=== PATIENT | male | born 1930 | race Caucasian/White ===

== ENCOUNTER 2017-06-07 09:41 | Outpatient (CLI) ==
[2015-08-07 14:37] VITALS: BMI 30.3
--- NOTE | 2017-06-07 12:42 | CT ---
EXAM: CT of the chest without contrast History: Follow-up lung nodules. Comparison: Chest CT 05/25/2016 Technique: Multiplanar CT images through the thorax were obtained without the administration of IV c ontrast Findings: Heart size is normal. Coronary calcifications and valvular calcifications of the heart. N o pericardial effusion. No pathologically enlarged thoracic lymph nodes. Calcified granulomas again seen within the thorax. No consolidation. No pleural fluid and no pneumothorax. Scattered areas o f subsegmental atelectasis again noted. Stable 3 mm pleural based right middle lobe lung nodule. No developing lung nodules and no suspicious lung nodules or lung masses. Moderate to large hiatal hernia again identified. Status post cholecystectomy. No acute osseous abn ormalities. Diffuse idiopathic skeletal hyperostosis of the thoracic spine. Impression: 1. No acute intrathoracic process. 2. Stable most likely benign 3 mm right middle lobe lung nodule. No developing lung nodules and no suspicious lung nodules. 3. Coronary artery disease and valvular calcifications of the heart. 4. [id number] hiatal hernia
== END 2017-06-07 09:42 | disposition home or self-care (01) ==
LOC: RAD 09:41
PROVIDERS: ATTEND Internal Medicine Pulmonary Disease
DX: R91.1 Solitary pulmonary nodule (principal)

== ENCOUNTER 2018-07-03 23:27 | Emergency (ER) | payer OTHER ==
[2018-07-03 23:38] VITALS: BP 136/71; TEMP 101; BMI 30.6
--- NOTE | 2018-07-04 00:20 | CT ---
EXAM: CT scan abdomen pelvis without contrast HISTORY: Right lower quadrant pain COMPARISON: None. FINDINGS: Contiguous axial images obtained through the abdomen pelvis without contrast utilizing 3-m m collimation. Sagittal and coronal reconstructions were imaged and reviewed.. There is moderate si zed hiatal hernia. There is bibasilar atelectasis and/or pneumonia. There has been prior cholecyste ctomy.. They are benign granulomatous changes in the spleen. The liver pancreas and adrenal glands have normal unenhanced CT appearance. Right kidney is morphologically normal. There is a small exop hytic cyst lower pole left kidney Atherosclerotic changes are seen involving the aorta without aneur ysm formation. There is a normal appendix. The bladder is small volumed and thick-walled with surro unding inflammation. Prostate gland is normal in size. There is no free fluid.. Degenerative change s noted throughout the lumbar spine bilateral hips. IMPRESSION: Moderate sized hiatal hernia. Bibasilar infiltrates left greater than right. ASVD without aneurysm. Normal appendix. Small volumed thick-walled bladder was not inflammations suggesting cystitis
[2018-07-04] MEDS ORDERED: LEVAQUIN 500 MG in PREMIX 100 ML D5W 1 BAG IV STA (00:48)
[2018-07-04] MEDS ORDERED: LEVAQUIN 100 ML IV ONE (00:54)
--- NOTE | 2018-07-04 01:04 | ED.PDOC ---
General ED Provider: Dr. JAMAICA MARTINEZ-ER Chief Complaint: Abdominal Pain Stated Complaint: im hurting and i am running a fever Time Seen by Physician: 23:30 Mode of Arrival: Walk-In Information Source: Patient, Family Exam Limitations: No limitations Primary Care Provider: NIDA FRANKLIN Nursing and Triage Documentation Reviewed and Agree: Yes Does patient meet sepsis criteria?: No System Inflammatory Response Syndrome: Not Applicable Sepsis Protocol: For patient's 13 years and over: Temp is 96.8 and below OR 101 and greater Pulse >90 BPM Resp >20/minute Acutely Altered Mental Status Are patient's symptoms suggestive of a new infection, such as: -Pneumonia -Skin, Soft Tissue -Endocarditis -UTI -Bone, Joint Infection -Implantable Device -Acute Abdominal Infection -Wound Infection -Meningitis -Blood Stream Catheter Infection -Unknown Complaint Exam - Complaint/Exam Patient Complains of: Reports: Dysuria Symptoms Are: Still present Timing: Constant Initial Severity: Mild Current Severity: Moderate Location of Pain: Reports: Suprapubic Character: Reports: Constant pressure, Dull Aggravating: Reports: Voiding, Straining, Palpation Alleviating: Reports: None Associated Signs and Symptoms: Reports: Fever, Increased urine frequency Abdominal Findings: Present: None Differential Diagnoses: Prostatitis, Pyelonephritis, UTI, Ureteral Calculi Review of Systems - Review Of Systems Constitutional: Reports: No symptoms Eyes: Reports: No symptoms Ears, Nose, Mouth, Throat: Reports: No symptoms Respiratory: Reports: No symptoms Cardiac: Reports: No symptoms GI: Reports: Abdominal pain : Reports: Dysuria, Frequency Musculoskeletal: Reports: No symptoms Skin: Reports: No symptoms Neurological: Reports: No symptoms Endocrine: Reports: No symptoms Hematologic/Lymphatic: Reports: No symptoms All Other Systems: Reviewed and Negative Past Medical History - Past Medical History Previously Healthy: No Endocrine: Reports: None Cardiovascular: Reports: DE, Hypertension, CHF Respiratory: Reports: None Hematological: Reports: Anemia Gastrointestinal: Reports: GERD Genitourinary: Reports: None Neuro/Psych: Reports: Anxiety Musculoskeletal: Reports: Arthritis Cancer: Reports: None - Surgical History General Surgical History: Reports: Cholecystectomy - Family History Family History: Reports: Unknown - Social History Smoking Status: Former smoker Hx Substance Use: No Alcohol Screening: None - Immunizations Tetanus Shot up to Date: (UNKNOWN) Physical Exam - Physical Exam Appearance: Well-appearing Eyes: YOANA, EOMI, Conjunctiva clear ENT: Ears normal, Nose normal, Oropharynx normal Neck: Supple Respiratory: Airway patent Cardiovascular: RRR GI/: Soft, Nontender, No masses, Bowel sounds normal, No Organomegaly Musculoskeletal: Normal strength, ROM intact, No edema, No calf tenderness Skin: Warm, Dry, Normal color Neurological: Sensation intact, Motor intact, Reflexes intact, Cranial nerves intact, Alert, Oriented Psychiatric: Affect appropriate, Mood appropriate Interpretation - Radiology Interpretation Radiology Interpretation By: Radiologist Radiology Results: Positive Exam Interpreted: CT Scan Critical Care Note - Critical Care Note Total Time (mins): 0 Course - Course Hematology/Chemistry: 07/03/18 23:59 07/03/18 23:59 Orders, Labs, Meds: Lab Review 07/03/18 07/03/18 07/04/18 23:59 23:59 00:00 WBC 13.18 H RBC 4.60 L Hgb 14.9 Hct 42.1 MCV 91.5 MCH 32.4 H MCHC 35.4 RDW Coeff of [place] 13.1 Plt Count 164 Immature Gran % (Auto) 0.5 Neut % (Auto) 70.1 Lymph % (Auto) 15.6 [place] % (Auto) 10.9 H Eos % (Auto) 2.6 Baso % (Auto) 0.3 Immature Gran # (Auto) 0.1 Neut # (Auto) 9.2 H Lymph # (Auto) 2.1 [place] # (Auto) 1.4 Eos # (Auto) 0.3 Baso # (Auto) 0.0 ESR Pending Sodium 137.1 Potassium 3.67 Chloride 102.0 Carbon Dioxide 31.3 H Anion Gap 7.47 BUN 25.4 H Creatinine 1.04 Estimated GFR (MDRD) 68.00 BUN/Creatinine Ratio 24.42 Glucose 113.2 H Calcium 8.86 Total Bilirubin 0.70 AST 27.3 ALT 17.6 Alkaline Phosphatase 82.8 Total Protein 7.34 Albumin 4.02 Globulin 3.32 Albumin/Globulin Ratio 1.21 Amylase 61.8 Lipase 42.5 Urine Color Yellow Urine Clarity Slightly Urine pH 7.5 Ur Specific [place] 1.015 Urine Protein 1+ Urine Glucose (UA) Negative Urine Ketones Negative Urine Blood Negative Urine Nitrite Negative Urine Bilirubin Negative Urine Urobilinogen 2.0 Ur Leukocyte Esterase 1+ Urine Microscopic WBC 10-20 Ur Squamous Epith Cells 2-5 Urine Bacteria 2+ Urine Mucus 1+ Orders Category Date Time Status IV [ED IV/MEDIPORT/POWERPORT] .ONCE EMERGENCY 07/04/18 00:48 Active AMYLASE Stat LAB 07/03/18 23:59 Completed CBC W/ AUTO DIFF Stat LAB 07/03/18 23:59 Results COMPREHENSIVE METABOLIC PANEL Stat LAB 07/03/18 23:59 Completed ESR Stat LAB 07/03/18 23:59 Results LIPASE Stat LAB 07/03/18 23:59 Completed URINALYSIS C & S IF INDICATED Stat LAB 07/04/18 00:00 Completed URINE CULTURE Stat LAB 07/04/18 00:00 Received 0.9 % Sodium Chloride [Saline Flush] MEDS 07/04/18 00:48 Ordered 1 syr IVF PRN PRN Levofloxacin/D5w [Levaquin] 100 ml MEDS 07/04/18 00:54 Discontinued IV .STK-MED Levofloxacin/D5w [Levaquin] 500 mg MEDS 07/04/18 00:48 Active Premix 100 ml D5w [address] ABDOMEN/PELVIS WO CONTRAST Stat RADS 07/03/18 23:41 Completed Medications Generic Name Dose Route Start Last Admin Trade Name Freq PRN Reason Stop Dose Admin Levofloxacin/Dextrose 500 mg/ 100 mls @ 100 mls/hr 07/04/18 00:48 Dextrose IV 07/04/18 01:47 ONCE STA Sodium Chloride 1 syr 07/04/18 00:48 Saline Flush IVF PRN PRN To flush IV Vital Signs: Temp Pulse Resp BP Pulse Ox 07/03/18 23:28 101 F H 72 20 136/71 91 L Departure - Departure Time of Disposition: 01:04 Disposition: HOME SELF-CARE Discharge Problem: Cystitis Instructions: Urinary Tract Infection in Men (ED) Condition: Good Pt referred to PMD for follow-up: Yes IPMP verified?: No Additional Instructions: bactrim ds bid x 10 days--f/u with dr franklin on sunday---return if symptoms worsen Allergies/Adverse Reactions: Allergies fish oil Adverse Reaction (Verified 07/03/18 23:39) Penicillins Adverse Reaction (Verified 07/03/18 23:39) pregabalin [From Lyrica] Adverse Reaction (Verified 07/03/18 23:39) testosterone [From AndroGel] Adverse Reaction (Verified 07/03/18 23:39) 07/03/18 PT STATES IS NOT SURE IF ALLERGIC TO THIS, LEFT ON LIST venom-honey bee [bee venom (honey bee)] Adverse Reaction (Verified 07/03/18 23: 39) Home Medications: Ambulatory Orders Hydrochlorothiazide 12.5 mg PO DAILY 12/25/14 Metoprolol Tartrate [Lopressor] 50 mg PO DAILY 12/25/14 Multivitamin [Multi-Vitamin Daily] 1 each PO BID 12/25/14 Omeprazole [Prilosec] 20 mg PO DAILY 12/25/14 Venlafaxine HCl [Effexor] 75 mg PO DAILY 12/25/14 Tamsulosin HCl [Flomax] 0.4 mg PO DAILY 07/03/18 Disposition Discussed With: Patient, Family
== END 2018-07-04 02:11 | disposition home or self-care (01) ==
LOC: ED 23:27
DX: N30.90 Cystitis, unspecified without hematuria (principal); R10.9 Unspecified abdominal pain; I10 Essential (primary) hypertension; I25.2 Old myocardial infarction; Z79.899 Other long term (current) drug therapy
CPT/HCPCS: 36415; 80053; 81001; 82150; 83690; 85025; 85651; 87086; 87186; 96365; 99283

== ENCOUNTER 2018-11-19 14:24 | Outpatient (CLI) | payer OTHER ==
--- NOTE | 2018-11-19 15:35 | DI ---
Exam: Three views of the left ankle. Comparison: Left foot x-rays performed on 08/10/2011. Reason for exam: Left ankle pain. FINDINGS: No acute fracture or malalignment. The talar dome appears intact. Degenerative disease i s seen in the tibiotalar joint space. Impression: No obvious fracture or dislocation is seen in the left ankle with mild to moderate degenerative disea se.
== END 2018-11-19 14:25 | disposition home or self-care (01) ==
LOC: RAD 14:24
PROVIDERS: ATTEND Family Medicine
DX: M25.572 Pain in left ankle and joints of left foot (principal)